=== PATIENT | female | born 1965 | race Caucasian/White ===

== ENCOUNTER 2020-12-08 11:16 | Outpatient (REF) | payer OTHER, SELFPAY | END 2020-12-08 11:17 | disposition home or self-care (01) | LOC: HO.LAB 11:16 | PROVIDERS: PCP Internal Medicine; Visit Provider Advanced Practice Midwife | DX: N39.0 Urinary tract infection, site not specified (principal) | CPT/HCPCS: 87086 ==

== ENCOUNTER 2021-06-19 10:02 | Outpatient (REF) | payer OTHER, SELFPAY ==
--- NOTE | ~2021-06-19 | MM_ITS ---
EXAMINATION: MM SCREENING DIGITAL BREAST TOMOSYNTHESIS, BILATERAL CLINICAL INFORMATION: Screening. Asymptomatic. The lifetime risk of breast cancer based on the Tyrer-Cuzick Model is 10.0%. COMPARISON: Mammography: April 15, 2020 and studies dating back to December 31, 2011 TECHNIQUE: Digital breast tomosynthesis is performed in both the craniocaudal and mediolateral oblique views along with computer-aided detection (CAD). Synthesized 2D images are generated from the tomosynthesis. FINDINGS: There are scattered areas of fibroglandular density (ACR BI-RADS breast composition Category b). There are no new significant masses, abnormal calcifications, or other abnormalities. MM/MM tomosynthesis screening BI IMPRESSION: There are no significant changes from prior study. ASSESSMENT: BI-RADS 1: Negative RECOMMENDATION: Routine annual mammography screening. This patient's information was entered into a reminder system with a target due date for their next mammogram.
== END 2021-06-19 10:03 | disposition home or self-care (01) ==
LOC: HO.MAMMO 10:02
PROVIDERS: PCP Physician Assistant Medical; Visit Provider Physician Assistant Medical
DX: Z12.31 Encounter for screening mammogram for malignant neoplasm of breast (principal)
CPT/HCPCS: 77063; 77067

== ENCOUNTER 2022-06-27 12:44 | Outpatient (REF) | payer OTHER, SELFPAY ==
--- NOTE | ~2022-06-27 | MM_ITS ---
EXAMINATION: MM SCREENING DIGITAL BREAST TOMOSYNTHESIS, BILATERAL CLINICAL INFORMATION: Screening. Asymptomatic. The lifetime risk of breast cancer based on the Tyrer-Cuzick Model is 8%. COMPARISON: Mammography: 06/19/2021, 04/15/2020, 10/09/2019, 04/26/2019, 03/30/2019, 03/28/1820; right breast ultrasound 04/06/2019, 10/09/2019. TECHNIQUE: Digital breast tomosynthesis is performed in both the craniocaudal and mediolateral oblique views along with computer-aided detection (CAD). Synthesized 2D images are generated from the tomosynthesis. FINDINGS: There are scattered areas of fibroglandular density (ACR BI-RADS breast composition Category b). There are no significant masses, abnormal calcifications, or other abnormalities. Parenchymal pattern is similar to prior studies. There is no developing density or architectural abnormality. The axilla and skin contours are unremarkable. No significant changes. MM/MM tomosynthesis screening BI IMPRESSION: No mammographic evidence of malignancy. ASSESSMENT: BI-RADS 1: Negative RECOMMENDATION: Routine annual mammography screening. This patient's information was entered into a reminder system with a target due date for their next mammogram.
== END 2022-06-27 12:45 | disposition home or self-care (01) ==
LOC: HO.MAMMO 12:44
PROVIDERS: Visit Provider Physician Assistant Medical
DX: Z12.31 Encounter for screening mammogram for malignant neoplasm of breast (principal)
CPT/HCPCS: 77063; 77067

== ENCOUNTER 2023-07-24 08:40 | Outpatient (REF) | payer OTHER, SELFPAY | END 2023-07-24 08:41 | disposition home or self-care (01) | LOC: HO.MAMMO 08:40 | PROVIDERS: PCP Physician Assistant Medical; Visit Provider Physician Assistant Medical | DX: Z12.31 Encounter for screening mammogram for malignant neoplasm of breast (principal) | CPT/HCPCS: 77063; 77067 ==

== ENCOUNTER → 2023-07-24 08:45 | Outpatient (BNV) | payer OTHER, SELFPAY | PROVIDERS: PCP Physician Assistant Medical; Visit Provider Radiology Diagnostic Radiology | DX: Z12.31 Encounter for screening mammogram for malignant neoplasm of breast (principal) | CPT/HCPCS: 77063; 77067 ==

== ENCOUNTER 2024-08-05 14:31 | Outpatient (REF) | payer OTHER, SELFPAY ==
--- NOTE | ~2024-08-05 | MM_ITS ---
EXAMINATION: MM SCREENING DIGITAL BREAST TOMOSYNTHESIS, BILATERAL CLINICAL INFORMATION: Screening. Asymptomatic. COMPARISON: Mammography: Comparison is made with available priors TECHNIQUE: Digital breast mammography with tomosynthesis is performed in both the craniocaudal and mediolateral oblique views along with computer-aided detection (CAD). FINDINGS: There are scattered areas of fibroglandular density (ACR BI-RADS breast composition Category b). There are no significant masses, abnormal calcifications, or other abnormalities. MM/MM tomosynthesis screening BI IMPRESSION: No mammographic evidence of malignancy. ASSESSMENT: BI-RADS BI-RADS 1 - Negative RECOMMENDATION: Routine annual mammography screening. 1 year F/U This examination should not preclude the clinical evaluation of a suspicious palpable abnormality. This patient's information was entered into a reminder system with a target due date for their next mammogram. Electronically signed by: Robyn Resendiz DO 08/14/2024 01:40 PM [facility]
== END 2024-08-05 14:32 | disposition home or self-care (01) ==
LOC: HO.MAMMO 14:31
PROVIDERS: PCP Internal Medicine; Visit Provider Physician Assistant Medical
DX: Z12.31 Encounter for screening mammogram for malignant neoplasm of breast (principal)
CPT/HCPCS: 77063; 77067

== ENCOUNTER → 2024-08-05 14:45 | Outpatient (BNV) | payer OTHER, SELFPAY | PROVIDERS: PCP Internal Medicine; Visit Provider Internal Medicine | DX: Z12.31 Encounter for screening mammogram for malignant neoplasm of breast (principal) | CPT/HCPCS: 77063; 77067 ==

== ENCOUNTER 2025-09-01 13:38 | Outpatient (REF) | payer OTHER, SELFPAY ==
--- NOTE | ~2025-09-01 | MM_ITS ---
EXAMINATION: MM SCREENING DIGITAL BREAST TOMOSYNTHESIS, BILATERAL CLINICAL INFORMATION: Screening. Asymptomatic. COMPARISON: Mammography: Comparison is made with available priors TECHNIQUE: Digital breast mammography with tomosynthesis is performed in both the craniocaudal and mediolateral oblique views along with computer-aided detection (CAD). FINDINGS: There are scattered areas of fibroglandular density. There are no significant masses, abnormal calcifications, or other abnormalities. MM/MM tomosynthesis screening BI IMPRESSION: No mammographic evidence of malignancy. ASSESSMENT: BI-RADS Category 1: Negative RECOMMENDATION: Routine annual mammography screening. 1 year F/U This examination should not preclude the clinical evaluation of a suspicious palpable abnormality. This patient's information was entered into a reminder system with a target due date for their next mammogram. Electronically signed by: Robyn Resendiz DO 09/02/2025 11:55 AM [facility]
--- OUTSIDE RECORDS SUMMARY | 2025-09-01 16:16 | XMS_ITS | Data Portability ---
Author Organization [place] - [facility], Allergy Address [address] [address] Care Team Providers Care Dining Room Captain Name Role Phone NALLELY ALANIS Primary Care Provider Assessment Encounter Date Assessment Date Assessment LastModified by Organization Details LastModified Time 04/27/2024 04/27/2024 Patient has moderate obstructive sleep apnea as noted on her at home sleep study in 2020 through sleep medicine services. She has been very compliant with her CPAP for the past year with approximately 80% use of nearly 6 hours per night. Nonetheless she continues to feel some daytime fatigue. Recommend return to sleep medicine services for consideration of in lab titration study as there may be some modifications they can initiate to help her better get a value from her use of CPAP. We discussed the inspire hypoglossal nerve stimulator implant, but I would not recommend it at this time as I believe there is a good chance she will be able to find value with the CPAP dplosky Not available 04/27/2024 16:29:53 Plan of Treatment Reminders Order Date Submit Date Provider Last Modified By Organization Details Last Modified Time Details Appointments None recorded. Lab None recorded. Referral sleep medicine referral - Please re-eval pt for inlab titration study. She is compliant with CPAP but still feels fatigue. Thank you. 2023 024 [facility] Sleep Medicine Services, [facility] [address] [place], [address], 11:03:45 Procedures None recorded. Surgeries None recorded. Imaging None recorded. Medication Orders None recorded. Patient TargetsNo targets recorded. Patient InstructionsNo instructions recorded. Reason for Referral Sleep Medicine Referral for Obstructive sleep apnea syndrome Please re-eval pt for inlab titration study. She is compliant with CPAP but still feels fatigue. Thank you. Referring Physician: Jose Hernández, Otolaryngology, Encounter Date: 04/27/2024 Results Created Date Observation Date Name Description Value Unit Range Abnormal Flag Note LastModifiedBy Organization Detail LastModifiedTime 04/28/2009/17/2021 sleep study , diagn ostic (PROC ) No observ ation record ed. [email or web address] Not Available 04/01 15:42:15 05/21/20 24 03/26/2023 imagi ng/di agnos tic resul t No observ ation record ed. [email or web address] Not Available 00:01:13 05/21/20 24 09/17/2021 imagi ng/di agnos tic resul t No observ ation record ed. [email or web address] Not Available 00:01:21 Result Notes None recorded. Problems Name Problem SNOMED Code Status Onset Date Resolution Date Notes Provider Name and Address Organization Details Recorded Time Sensorine ural hearing loss of bilateral ears 804744823 Active 2022 Sensorineu ral hearing loss, bilateral; Note: Date Diagnosed: 03/26/2023 12:46 PM (H90.3) Not Available [facility] 4 02:14:41 Itching of skin 280716837 Active 2022 Other pruritus; Note: Date Diagnosed: 03/26/2023 12:53 PM (L29.8) Not Available [facility] 4 02:14:56 Obstructi ve sleep apnea syndrome 63539769 Active 2023 JOSE HERNÁNDEZ MD [address] [place] [address],[place] [address], [place], [address] , [facility] 4 09:41:52 Problem Notes None recorded. Procedures Surgical History Date Name Laterality Status Provider Name and Address Organization Details Recorded Time 04/27/2024 FOL_DP completed JOSE HERNÁNDEZ MD [address] [place] [address],[place] [address], [place], [id number], [facility] 04/27/2024 09:41:44 Imaging Results None recorded. Procedure Notes None recorded. Medical Equipment None Reported. Medications Name Sig Start Date Stop Date Status Note LastModified by Organization Details LastModified Time prednisone 10 mg tablet TAKE FOUR TABLETS BY MOUTH EVERY DAY FOR 3 DAYS ,TAKE TWO TABLETS EVERY DAY FOR 3 DAYS ,TAKE ONE TABLET EVERY DAY FOR 3 DAYS.TAKE IN THE MOR active Not Available Not Available N ot Available citalopram 40 mg tablet TAKE ONE TABLET BY MOUTH EVERY DAY active Not Available Not Available No t Available fluconazole 150 mg tablet TAKE ONE TABLET BY MOUTH ONCE FOR 1 DOSE,REPEA T IN 72 HOURS IF SYMPTOMS PERSIST active Not Available Not Available No t Available simvastatin 10 mg tablet TAKE ONE TABLET BY MOUTH AT BEDTIME active Not Available Not Available No t Available fluocinonide 0.05 % topical ointment APPLY TO HANDS AND NECK TWICE DAILY FOR 2 WEEKS, BREAK ONE WEEK AND REPEAT NEEDED FOR FLARES active Not Available Not Available No t Available amoxicillin 500 mg tablet TAKE TWO TABLETS BY MOUTH THREE TIMES A DAY FOR 7 DAYS active Not Available Not Available No t Available meloxicam 7.5 mg tablet TAKE ONE TABLET BY MOUTH EVERY DAY active Not Available Not Available No t Available lorazepam 0.5 mg tablet TAKE ONE TABLET BY MOUTH EVERY DAY NEEDED FOR ANXIETY active Not Available Not Available No t Available triamcinolone acetonide 0.1 % topical ointment APPLY TO AFFECTED AREA S) OF LEFT UPPER ARM TWO TIMES A DAY FOR 2 WEEKS BREAK FOR 1 WEEK REPEAT NEEDED active Not Available Not Available No t Available doxycycline hyclate 100 mg tablet TAKE ONE TABLET BY MOUTH TWICE A DAY FOR 10 DAYS active Not Available Not Available No t Available Atrovent HFA 17 mcg/actuation aerosol inhaler INHALE 2 PUFFS INTO THE LUNGS EVERY 6 HOURS active Not Available Not Available No t Available diclofenac 1 % topical gel APPLY 4 GRAMS TO AFFECTED AREA S) FOUR TIMES DAILY NEEDED FOR ARTHRITIS PAIN active Not Available Not Available No t Available Vitals Date Recorded Body height Body mass index (BMI) Body weight Provider Name and Address Organization Details Last Updated DateTime 04/27/2024 157.48 cm 30 kg/m2 40591.15 g Kenzie Johnson [place] - [facility] 04/27/2024 15:58:00 Social History None recorded. Functional Status None recorded. Mental Status None recorded. Family History Nothing Reported. Medical History No medical history recorded. Gynecological HistoryNo gynecological history recorded. Obstetrics History GPAL:G 0 P 0 0 0 0 Past Encounters Encounter ID Performer Location Encounter Start Date Encounter Closed Date Diagnosis/Indication Diagnosis SNOMED-CT Code Diagnosis ICD10 Code Diagnosis IMO Codes Diagnosis Note [id number] JOSE HERNÁNDEZ MD [facility] [address] [place] [address] 04/27/2024 15:46:31 04/27/2024 16:29:12 Obstructive sleep apnea syndrome 97733618 G47.33 Health Concerns Section Related Observation LastModified by Organization Detai ls LastModified Time None Recorded Concern Status LastModified by Organization Details LastModified Time None Recorded Advance Directives Directive None Recorded Payers Insurance Date Sequence Insurance Name Policy Number Policy Vázquez Covered Member ID Vázquez Member ID Guarantor Name 04/27/2024 1 [facility] [employer] [facility] ([id number]) [id number] Aniya Gonzalez [id number] Aniya Gonzalez Notes Date Note Type Note Provider Name and Address Organization Details Recorded Time 04/27/2024 text/html ROS as noted in the HPI [employer] [id number]/17/2021 home sleep study at [facility] [id number] and mixed 8 of 126 eventsCPAP trial - finds no benefit from the consistent use of CPAP since leep habits goes to bed around 11:30p, wake around 6:30auses CPAP about 6 hours a night weight stableno prior throat surgery has son with Down with CPAP JOSE HERNÁNDEZ MD [address] [place] [address], [place], [address], [place] - [facility] 04/27/2024 16:30:13 OBGyn Episode No OBEpisode recorded.
--- OUTSIDE RECORDS SUMMARY | 2025-09-01 16:16 | XMS_ITS ---
Author Name [facility] Organization Unknown Care Team Organization Name Specialty Phone Email Start Date End Da te [facility] Termed, PROVIDER Primary Care 08/07/202204/30
--- OUTSIDE RECORDS SUMMARY | 2025-09-01 16:16 | XMS_ITS | Clinical Summary ---
Author Organization [facility] [address] [place] [address] [place] [address] [place] [phone] Phone Care Team Providers Care Quality Control Specialist Name Role Phone Gagan Dan MD Primary Care Provider Allergies Active Allergy Reactions Criticality Noted Date Comments Azithromycin Nausea And Vomiting 01/15/2006 Bacitracin Zinc Swelling 10/16/2011 Swelling in the eyes. Medications triamcinolone (KENALOG) 0.1 % ointment APPLY TO AFFECTED AREA S) OF LEFT UPPER ARM TWO TIMES A DAY FOR 2 WEEKS BREAK FOR 1 WEEK REPEAT NEEDED 11/26/2023 Active LORazepam (ATIVAN) 0.5 mg tablet Take 1 tablet (0.5 mg total) by mouth 1 (one) time each day if needed for anxiety. Max Daily Amount: 0.5 mg 20 tablet 09/14/2024 Active citalopram (CeleXA) 40 mg tablet Take 1 tablet (40 mg total) by mouth 1 (one) time each day. 90 each 04/23/2025 Active omeprazole (PriLOSEC) [address] capsule Take 1 capsule (20 mg total) by mouth 1 (one) time each day. Do not crush or chew. 90 each 1 04/23/2025 Active diclofenac (VOLTAREN) 1 % topical gel Apply 2 gram four times daily to affected joint 100 g 3 04/23/2025 Active simvastatin (ZOCOR) 20 mg tablet Take 1 tablet (20 mg total) by mouth at bedtime. 90 each 1 04/26/2025 Active cyanocobalamin (VITAMIN B-12) 1,000 mcg tablet Take 1 tablet (1,000 mcg total) by mouth 1 (one) time each day. 90 each 1 04/26/2025 Active Active Problems Problem Noted Date Diagnosed Date Primary hypertension 04/27/2025 Assessment & Plan (04/27/2025 3:21 PM EDT): Blood pressure is well-controlled with a reading today of 118/78. We discussed her cardiac risk factors. I have reviewed with the patient the importance of a heart healthy lifestyle which includes eating a low-fat low-salt diet, getting regular exercise, maintaining a healthy weight, not smoking, and following up with routine medical care. Secondhand smoke exposure 03/04/2024 Dyspnea 01/21/2023 Overview (07/31/2024): Last Assessment & Plan: We did discuss her dyspnea. Its not completely clear what the etiology of this is. Again we will be doing an echocardiogram and stress test to rule out coronary disease and any structural abnormalities as a potential cause. May be that she has some underlying lung disease as well. She may benefit from pulmonary function testing if her stress testing and echocardiogram is normal. She does have sleep apnea and we did discuss that this may need to be adjusted and this could be causing some of her dyspnea as well. Palpitation 01/21/2023 Overview (07/31/2024): Last Assessment & Plan: We did discuss her palpitations. Its not completely clear what the etiology of these are. It does sound like she is having simple PACs or PVCs. We did discuss potential triggers. I have asked her to check a TSH, chemistry and magnesium to make sure her electrolytes are stable. We will also check a Holter monitor. Again we did discuss potential triggers for these. If they worsen she will let us know. Assessment & Plan (04/27/2025 3:21 PM EDT): Patient continues to have occasional palpitations which are not associated with chest pain or dyspnea. IFG (impaired fasting glucose) 06/25/2022 Hypersomnolence 11/23/2021 Overweight 11/23/2021 Nocturnal hypoxemia 09/27/2021 Obstructive sleep apnea 09/27/2021 Overview (07/31/2024): [facility] Home sleep test 09/17/2021. Weight 150 pounds; BMI 29. AHI 23, AI 6; AHI 17. 39 obstructive apneas, 7 central apneas, 1 mixed apneas and 126 hypopneas. Average oxygen saturation 91% and oxygen pepper 79%. Obstructive sleep apnea-moderate with mostly hypopneas and obstructive apneas and nocturnal hypoxemia based on 2020 home sleep test. Last Assessment & Plan: [facility] Home sleep test 09/17/2021. Weight 150 pounds; BMI 29. AHI 23, AI 6; AHI 17. 39 obstructive apneas, 7 central apneas, 1 mixed apneas and 126 hypopneas. Average oxygen saturation 91% and oxygen pepper 79%. Obstructive sleep apnea-moderate with mostly hypopneas and obstructive apneas and nocturnal hypoxemia based on 2020 home sleep test. 11/23/2021 LATONYA consult. Hypersomnolence and snoring. Symptomatic. CPAP trial recommended. FU 3 months. Sexual dysfunction 01/16/2021 Gastroesophageal reflux disease without esophagi tis 11/07/2017 Adenomatous colon polyp 05/06/2017 Overview (07/31/2024): 1cm sessile serrated adenoma, cecum 04/22/17 Needs follow up 2019 Dyshidrotic eczema 01/07/2017 Chronic throat clearing 04/18/2016 Wheezing 12/28/2015 Anxiety and depression 08/12/2012 Hypercholesteremia 01/26/2008 Assessment & Plan (04/27/2025 3:21 PM EDT): Actively controlled on her present dose of simvastatin. Continue to follow with primary care provider for routine labs. Resolved Problems Problem Noted Date Diagnosed Date Resolved Date Chest pain 01/21/2023 04/27/2025 Overview (07/31/2024): Last Assessment & Plan: We did discuss her chest discomfort. She has had this for some time. With her family history of premature coronary disease we decided to repeat stress testing. This will allow us to evaluate more closely for any signs of coronary artery disease. I will schedule her for a exercise stress test with nuclear imaging. This will also provide CAT scan image of her arteries to see if she has significant coronary artery disease as this will change how aggressive we are with her management. This will also give us some insight as to why she could be having shortness of breath Encounters Date Type Department Care Team Description 06/23/2025 2:00 PM EDT Office Visit Pulmonology - [address] [phone] Violetta Cuevas MD LATONYA on CPAP (Primary Dx); Ex-smoker; ESTRADA (dyspnea on exertion) 06/23/2025 Telephone Pulmonology [address] [place] [phone] Violetta Cuevas MD from Last 3 Months Immunizations Immunization Administration Dates Next Due PPD Test 03/27/2017 Td Tetanus diptheria (Tdvax) 7yo and older 05/20,01/15/2006 Tdap Tetanus diptheria acell ular pertussis (Boostrix; Adacel) 7yo and older 01/30/2013 Surgical History Surgery Date Site/Laterality Comments OTHER SURGICAL HISTORY PROCEDURE: HISTORICAL TOTAL HYSTERECTOMY W/O BSO; COMMENT: still has ovaries TUBAL LIGATION PROCEDURE: HISTORICAL TUBAL LIGATION WISDOM TOOTH EXTRACTION PROCEDURE: HISTORICAL WISDOM TEETH EXTRACTION; COMMENT: wisdom teeth removed COLONOSCOPY W/ POLYPECTOMY 04/22/2017 PROCEDURE: ME COLSC FLX W/RMVL OF TUMOR POLYP LESION SNARE TQ; COMMENT: Cecal polyp -> 1 cm serrated adenoma, rectal polyp-> hyperplastic, rpt 3 yrs COLONOSCOPY 07/28/2020 PROCEDURE: HISTORICAL COLONOSCOPY; COMMENT: [email or web address] - normal 10 years Medical History Medical History Date Comments Depressive disorder, not els ewhere classified 01/21/2006 DX:Depressive disorder, not elsewhere classified Wheezing DX:Wheezing Dyshidrotic eczema 01/07/2017 DX:Dyshidroti c eczema Hypercholesteremia 01/26/2008 DX:Hyperchole steremia Anxiety and depression 08/12/2012 DX:Anxiet y and depression Family History Medical History Relation Name Comments Heart attack Father Diabetes Maternal Grandfather Other: epilepsy Maternal Grandmother Lung cancer Mother emphysema, smok er No Known Problems Paternal Grandfather No Known Problems Paternal Grandmother Diabetes Sister 1 No Known Problems Sister 2 Other: Down Syndrome Son 1 ADD / ADHD Son 2 Colon cancer Uncle 1 paternal Diabetes Uncle 2 paternal Breast cancer Neg Hx Ovarian cancer Neg Hx Stroke Neg Hx Uterine cancer Neg Hx Relation Name Status Comments Father (Age 57) Maternal Grandfather diabete s Maternal Grandmother Mother (Age 71) Paternal Grandfather Paternal Grandmother Sister 1 Alive Shelbi Sister 2 Alive Meghan Son 1 Alive Son 2 Alive Uncle 1 Uncle 2 Social History Tobacco Use Types Packs/Day Years Used Date Smoking Tobacco: Former Cigarettes 1 5.8 1 11/14/1979 - 06/30/1986 Smokeless Tobacco: Never Tobacco Cessation:Counseling Given: Not Answered Alcohol Use Standard Drinks/Week Comments No 0 (1 standard drink = 0.6 oz pur e alcohol) Housing Instability Answer Date Recorde d Are you worried that in the next 2 months you may not have stable housing? No 04/23/2025 Food Access & Nutrition Answer Date Rec orded Do you have access to a vari ety of food including fruits and vegetables? Yes 04/23/2025 Access to Healthcare Answer Date Record ed Within the last 3 months, ho w many times did you visit the emergency department for your medical care? 0 04/23/2025 Health Literacy Answer Date Recorded How often do you need to hav e someone help you when you read instructions, pamphlets, or other written material from your doctor or pharmacy? Never 04/23/2025 Caregiver: How often do you need to have someone help you when you read instructions, pamphlets, or other written material from your doctor or pharmacy? Not on file 04/23/2025 Financial Risk Answer Date Recorded How hard is it for you to pa y for the very basics like food, housing, medical care, and air conditioning / heating? Somewhat hard 04/23/2025 Transportation Answer Date Recorded Has the lack of transportati on kept you from meetings, work, or from getting things needed for daily living? No Has the lack of transportati on kept you from medical appointments or from getting medications? No 04/23/2025 Social Isolation Answer Date Recorded How often do you feel lonely or isolated from th ose around you? Never 04/23/2025 Food Risk Answer Date Recorded Within the past 12 months we worried whether our food would run out before we got money to buy more. Never true 04/23/2025 Within the past 12 months th e food we bought just didn't last and we didn't have money to get more. Never true 04/23/2025 Dependent Care Answer Date Recorded Do you need help finding or paying for care for your loved ones. For example, early childhood associate teacher or elderly care for an older adult? No 04/23/2025 Education Answer Date Recorded Do you think completing more education or training, like finishing a GED, going to college, or learning a trade, would be helpful for you? No 04/23/2025 Employment and Income Answer Date Recor ded During the last four weeks, have you been actively looking for work? No 04/23/2025 Living Situation Answer Date Recorded What is your living situation? Unrecognized valu e 04/23/2025 Comments No Sex and Gender Information Value Date Recorded Sex Assigned at Not on file Legal Sex Female 7:39 PM EST Gender Identity Not on file Sexual Orientation Not on file Obstetrics History Last Filed Vital Signs Vital Sign Reading Time Taken Comments Blood Pressure 118/74 06/23/2025 1:51 PM EDT Pulse 78 06/23/2025 1:51 PM EDT Temperature 36.3 C (97.3 F) 06/23/2025 1:51 PM EDT Respiratory Rate 14 06/23/2025 1:51 PM EDT Oxygen Saturation 91% 06/23/2025 1:51 PM EDT Inhaled Oxygen Concentration - - Weight 76.9 kg (169 lb 9.6 oz) 06/23/2025 1:51 P M EDT Height 157.5 cm (5' 2 ) 06/23/2025 1:51 PM EDT Body Mass Index 31.02 06/23/2025 1:51 PM EDT Plan of Treatment Upcoming Encounters Date Type Department Care Team (Late st Contact Info) Description 10/26/2025 2:30 PM EST Office Visit Adult Medicine [facility] [address] [place], [place] [phone] Gagan Dan MD [address] [place], [place] 06/23/2026 2:30 PM EDT Office Visit Pulmonology - [address] [place] [phone] Violetta Cuevas MD [address] [place] [phone] Health Maintenance Due Date Last Done Comments Hepatitis B Vaccines (1 of 3 - 19+ 3-dose series) 1984 Zoster Vaccines (1 of 2) 2015 COVID-19 Vaccine (3 - 2024-2 6 season) 2025 06/09/2021, 05/19/2021 Influenza Vaccine (#1) 2025 Pneumococcal Vaccine: 50+ Years (1 of 1 - PCV) 04/21/2026 Postponed from 2015 (Patient Refused) Hypertension/CHF/CAD Annual BMP Blood Test 04/23/2026 04/23/2025, 05/06/2024, 05/06/2024 Social Influencers of Health Screening 04/23/2026 04/23/2025 Breast Cancer Screening 08/05/2026 08/05/20 24, 07/24/2023 Cholesterol Screening (Lipid Panel) 04/23/2030 04/23/2025, 05/06/2024, 05/06/2024 DTaP,Tdap,and Td Vaccines (4 - Td or Tdap) 05/20/2033 05/20/2023, 01/30/2013, 01/15/2006 Colorectal Cancer Screening: Colonoscopy 05/06/2034 05/06/2024, 07/28/2020 RSV Immunization Adult Patients (1 - 1-dose 75+ series) 2040 Hepatitis C Screening Completed 08/11/2007 , 08/11/2007 Cervical Cancer Screening: Pap Smear Discontinued 07/12/2021, 07/28/2020 Depression Screening Completed 04/23/2025 HIV Screening Completed 04/23/2025 HIB Vaccines Aged Out No longer eligi ble based on patient's age to complete this topic HPV Vaccines Aged Out No longer eligi ble based on patient's age to complete this topic Hepatitis A Vaccines Aged Out No long er eligible based on patient's age to complete this topic IPV Vaccines Aged Out No longer eligi ble based on patient's age to complete this topic MMR Vaccines Aged Out No longer eligi ble based on patient's age to complete this topic Meningococcal ACWY Vaccine Aged Out N o longer eligible based on patient's age to complete this topic Meningococcal B Vaccine Aged Out No l onger eligible based on patient's age to complete this topic RSV Immunization Patients Under 20 months Aged Out No longer eligible b ased on patient's age to complete this topic Varicella Vaccines Aged Out No longer eligible based on patient's age to complete this topic Procedures Procedure Name Priority Date/Time Associated Diagnosis Comments HIV 1, 2 ANTIBODY, P24 ANTIGEN WITH REFLEX TO DIFFERENTIATION Routine 04/23/2025 12:29 PM EDT Encounter for screening for HIV BASIC METABOLIC PANEL Routine 04/23/2025 12:29 PM EDT Anxiety and depression LIPID PANEL WITH REFLEX TO DIRECT LDL Routine 04/23/2025 12:29 PM EDT Screening for lipid disorders MG MAMMO DIGITAL SCREENING W SUDHIR BILAT Routine 08/05/2024 3:45 PM EST HM PAP SMEAR Routine 07/12/2021 HM COLONOSCOPY Routine 07/28/2020 HM HEPATITIS C SCREENING Routine 08/11/2007 from Last 3 Months or Most Recently Relevant to Health Maintenance Results * HIV 1,2 antibody, p24 antigen with reflex to differentiation (04/23/2025 12:29 PM EDT) HIV Combo AB/AG Negative Negative LAB CHEMISTRY METHOD 04/23/2025 6:[address] [facility] Blood Venous blood specimen / Unknown Venipuncture / Unknown 04/23/2025 12:29 PM EDT 04/23/2025 12:[address] [facility] - 04/23/2025 6:10 PM EDT This assay is a 4th generation assay allowing for earlier detection of HIV infection by detecting the presence of the HIV-1 p24 antigen as well as the traditional antibodies to HIV type 1 (including group O) and type 2. Use of a 4th generation assay is the current CDC recommendation for HIV screening. us Gagan Dan MD LAB BLOOD ORDERABLES F inal Result [facility] [address] [place] [address], [place] [phone] * (ABNORMAL) Lipid panel with reflex to direct LDL (04/23/2025 12:29 PM EDT) Cholesterol 171 0 - 200 mg/dL LAB CHEMISTRY METHOD 04/23/2025 4:[address] [facility] Triglycerides 95 0 - 150 mg/dL LAB CHEMISTRY METHOD 04/23/2025 4:[address] [facility] HDL 36(L) >=40 mg/dL LAB CHEMISTRY METHOD 04/23/2025 4:[address] [facility] LDL Calculated 116(H) 0 - 100 mg/dL LAB CHEMISTRY METHOD 04/23/2025 4:[address] [facility] VLDL Cholesterol Az 19 mg/dL LAB CHEMISTRY METHOD 04/23/2025 4:[address] [facility] Non HDL Chol. (LDL+VLDL) 135 <145 mg/dL LAB CHEMISTRY METHOD 04/23/2025 4:[address] [facility] Chol/HDL Ratio 4.8(H) 0.0 - 4.4 LAB CHEMISTRY METHOD 04/23/2025 4:[address] [facility] Blood Venous blood specimen / Unknown Venipuncture / Unknown 04/23/2025 12:29 PM EDT 04/23/2025 12:29 PM EDT us Gagan Dan MD LAB BLOOD ORDERABLES F inal Result [facility] [address] [place] [address], * Basic metabolic panel (04/23/2025 12:29 PM EDT) Sodium 137 133 - 145 mmol/L LAB CHEMISTRY METHOD 04/23/2025 4:[address] [facility] Potassium 4.4 3.5 - 5.5 mmol/L LAB CHEMISTRY METHOD 04/23/2025 4:53 PM [facility] Chloride 105 96 - 110 mmol/L LAB CHEMISTRY METHOD 04/23/2025 4:53 PM [facility] CO2 28 21 - 32 mmol/L LAB CHEMISTRY METHOD 04/23/2025 4:53 PM [facility] Anion Gap 4 3 - 11 LAB CHEMISTRY METHOD 04/23/2025 4:53 PM [facility] Glucose 87 70 - 100 mg/dL LAB CHEMISTRY METHOD 04/23/2025 4:53 PM [facility] BUN 14 5 - 25 mg/dL LAB CHEMISTRY METHOD 04/23/2025 4:53 PM [facility] Creatinine 1.01 0.50 - 1.10 mg/dL LAB CHEMISTRY METHOD 04/23/2025 4:53 PM [facility] eGFR 64 >=60 mL/min/1. 73m2 LAB CHEMISTRY METHOD 04/23/2025 4:53 PM [facility] Comment:Calculation based on the Chronic Kidney Disease Epidemiology Collaboration (CKD-EPI) equation refit without adjustment for race. BUN/Creatinine Ratio 13.9 LAB CHEMISTRY METHOD 04/23/2025 4:53 PM [facility] Calcium 8.9 8.5 - 10.5 mg/dL LAB CHEMISTRY METHOD 04/23/2025 4:53 PM [facility] Blood Venous blood specimen / Unknown Venipuncture / Unknown 04/23/2025 12:29 PM EDT 04/23/2025 12:29 PM EDT Gagan Dan MD LAB BLOOD ORDERABLES F inal Result [facility] [address] [place] [address], [place] [phone] * MG Mammo Digital Screening w Sudhir bilat (08/05/2024 3:45 PM EST) Anatomical Region Laterality Modality Breast Bilateral Mammography Historical Provider IMG BI PROCEDURES Final R esult * Pap Smear (07/12/2021) Pathologist [facility] Pap smear No Interpretation , Abstracted Historical Provider HEALTH MAINTENANCE Final Result * Colonoscopy (07/28/2020) Pathologist [facility] Colonoscopy No Interpretation , Abstracted Anatomical Region Laterality Modality Other Historical Provider HEALTH MAINTENANCE Final Result * Hepatitis C Screening (08/11/2007) Pathologist [facility] Hepatitis C Screening Abstracted Historical Provider HEALTH MAINTENANCE Final Result from Last 3 Months or Most Recently Relevant to Health Maintenance Insurance [facility] Care Teams Quality Control Specialist Relationship Specialty Start Date End Date Gagan Dan MD [address] [place] [phone] PCP - General 01/21/23
== END 2025-09-01 13:39 | disposition home or self-care (01) ==
LOC: HO.MAMMO 13:38
PROVIDERS: PCP Internal Medicine; Visit Provider Physician Assistant Medical
DX: Z12.31 Encounter for screening mammogram for malignant neoplasm of breast (principal)
CPT/HCPCS: 77063; 77067

== ENCOUNTER → 2025-09-01 13:40 | Outpatient (BNV) | payer OTHER, SELFPAY | PROVIDERS: PCP Internal Medicine; Visit Provider Internal Medicine | DX: Z12.31 Encounter for screening mammogram for malignant neoplasm of breast (principal) | CPT/HCPCS: 77063; 77067 ==